=== PATIENT | male | born 1970 ===

== ENCOUNTER 2024-09-24 05:00 | Day surgery (SDC) | payer OTHER ==
[2024-09-19 12:57] VITALS: BP 147/79
[2024-09-19 13:01] LABS: BASO % 0.5 % (0.1-1.2); EOS # 0.08 (0.04-0.54); HEMATOCRIT 51.1 % (40.1-51.0); HEMOGLOBIN 17.6 g/dL (13.7-17.5); LYMPH # 2.44 (1.18-3.74); LYMPH % 30.5 % (19.3-53.1); MEAN CORPUSCULAR HEMOGLOBIN 31.2 pg (25.6-32.2); MONO # 0.67 (0.24-0.82); MONO % 8.4 % (4.7-12.5); NEUT # 4.74 (1.56-6.13); NEUT % 59.1 % (34.0-71.1); PLATELET COUNT 306 K/uL (163-369); RED BLOOD COUNT 5.64 M/uL (4.63-6.08)
[2024-09-19 13:08] LABS: URINE APPEARANCE Clear; URINE BILIRRUBIN Negative (NEGATIVE); URINE BLOOD Negative; URINE COLOR Yellow; URINE GLUCOSE Negative (NEGATIVE); URINE KETONE Negative (NEGATIVE); URINE LEUKOCYTE Negative; URINE NITRATE Negative; URINE PROTEIN Negative (NEGATIVE); URINE UROBILINOGEN 0.2 E.U./dl
[2024-09-19 13:15] LABS: URINE BACTERIA 0 uL (0.0-1933); URINE EPITHELIAL CELLS 0.6 uL (0.0-38.8); URINE RBC 0.4 uL (0.0-20.8); URINE WBC 1.5 uL (0.0-23.2)
[2024-09-19 13:17] LABS: INR 1.08; PARTIAL THROMBOPLASTIN TIME 27.7 SECONDS (22.0-34.0); PROTHROMBIN TIME 11.7 SECONDS (9.0-11.5)
[2024-09-19 13:55] LABS: CALCIUM 9.9 mg/dL (8.5-10.1); CREATININE SERUM 1.08 mg/dL (0.70-1.30); GFR 71.25; POTASSIUM 4.4 mEq/L (3.5-5.1)
[~2024-09-24] VITALS: Ht 165.1 cm; Wt 92.1 kg
[~2024-09-24 05:00] MED LIST: COZAAR100 MG PO; ERTAPENEM SODIUM 1,000 MG VIAL IV SCH; HYDRODIURIL12.5 MG PO
[2024-09-24] MEDS ORDERED: ENOXAPARIN SODIUM 40 MG/0.4 ML SYRINGE SUBCUTANEO ONE (07:02)
[2024-09-24] MEDS ORDERED: ERTAPENEM SODIUM 1,000 MG VIAL ONE (07:11)
[2024-09-24] MEDS ORDERED: POLY119PG PO (10:13)
[2024-09-24] MEDS ORDERED: PERCOCET 5-3251 EACH PO (10:13)
[2024-09-24] MEDS ORDERED: CELEBREX200MG PO (10:13)
[2024-09-24] MEDS ORDERED: NEURONTIN300 MG PO (10:13)
[2024-09-24] MEDS ORDERED: MORPHINE SULFATE 4 MG/ML VIAL IV ONE ×2 (10:20→11:20)
== END 2024-09-24 13:59 | disposition home or self-care (01) ==
LOC: CIR.AMB 05:00
PROVIDERS: ATTEND Surgery
DX: K42.0 Umbilical hernia with obstruction, without gangrene (principal); Z88.0 Allergy status to penicillin
CPT/HCPCS: 49594; C1781